=== PATIENT | female | born 2000 | race Caucasian/White ===

== ENCOUNTER 2021-09-24 23:37 | Inpatient (IN) ==
[2021-09-25 00:38] LABS: Urine Appearance Cloudy; Urine Bilirubin Negative (Negative); Urine Blood 2+ (Negative); Urine Color Yellow; Urine Glucose Negative (Negative); Urine Ketones Negative (Negative); Urine Nitrite Negative (Negative); Urine Protein Negative (Negative); Urine Specific Gravity 1.021 (1.002-1.030); Urine Urobilinogen Negative (Negative)
[2021-09-25 00:45] LABS: Urine Bacteria Absent (Absent); Urine Red Blood Cell Trace(0-2/hpf) (Absent); Urine Squamous Epithelial Cell Present (Absent); Urine White Blood Cell Trace(0-5/hpf) (Absent)
[2021-09-25 00:54] LABS: Urine Benzodiazepine Screen None Detected (None Detect); Urine Cannabinoids Screen None Detected (None Detect); Urine Opiates Screen None Detected (None Detect)
[2021-09-25 01:00] LABS: ABS Lymphocytes 1.9 10^3/ul (1.0-4.8); ABS Monocytes 1.1 10^3/ul (0-0.8); ABS Neutrophils 9.4 10^3/ul (1.5-7.7); Eosinophil % 0.3 %; Hematocrit 39 % (35-47); Hemoglobin 13.6 g/dL (12.0-16.0); Lymphocyte % 15.5 %; Mean Corpuscular HGB Conc 34 g/dL (31-36); Mean Corpuscular Hemoglobin 31 pg (27-31); Mean Corpuscular Volume 89 fL (80-97); Mean Platelet Volume 7.4 fL (7.4-10.4); Platelet Count 351 10^3/uL (150-450); Red Cell Distribution Width 13 % (10-15); White Blood Count 12.5 10^3/uL (3.5-10.8)
[2021-09-25 01:16] LABS: ALT 9 U/L (7-52); AST 15 U/L (13-39); Albumin 4.5 g/dL (3.2-5.2); Albumin/Globulin Ratio 1.6 (1-3); Alkaline Phosphatase 54 U/L (35-149); Anion Gap 8 mmol/L (2-11); Blood Urea Nitrogen 13 mg/dL (6-24); CO2 Carbon Dioxide 25 mmol/L (22-32); Calcium 9.5 mg/dL (8.6-10.3); Chloride 105 mmol/L (101-111); Globulin 2.8 g/dL (2-4); Glucose 95 mg/dL (70-100); Potassium 3.5 mmol/L (3.5-5.0); Sodium 138 mmol/L (135-145); Total Protein 7.3 g/dL (6.4-8.9); eGFR CKD-EPI 99.7 (>60)
[2021-09-25 01:22] LABS: HCG Pregnancy < 0.60 mIU/mL
[2021-09-25 01:35] LABS: Acetaminophen < 15 mcg/mL; Alcohol, S < 13 mg/dL (<13); Salicylate < 2.50 mg/dL (<30)
[2021-09-25 02:28] LABS: TSH Ultra Thyroid Stim Horm 1.36 mcIU/mL (0.34-5.60)
[2021-09-25 08:37] LABS: Rapid COVID-19 Molecular Undetected (Undetected)
[2021-09-25] MEDS ORDERED: Al Hydrox/Mg Hydrox/Simet LIQ 30 ML UDC PO PRN (12:31)
[2021-10-01 10:49] VITALS: BP 125/70
== END 2021-10-01 15:00 | disposition home or self-care (01) | DRG 751 ==
LOC: ED 23:37 → BSU 09-25 13:26
PROVIDERS: ADMIT Psychiatry & Neurology Psychiatry; ATTEND Psychiatry & Neurology Psychiatry

== ENCOUNTER 2022-07-14 23:40 | Inpatient (IN) ==
[2022-07-15] MEDS ORDERED: Piperacillin/Tazobac ADVAN 3.375 GM in NS 0.9% 100 ml BAG 100 ML IV ONE (00:46)
[2022-07-15] MEDS ORDERED: Zosyn per Pharmacy NOTE FOLLOW UP SCH (01:00)
[2022-07-15 01:27] LABS: Urine Benzodiazepine Screen None Detected (None Detect); Urine Cannabinoids Screen None Detected (None Detect); Urine Opiates Screen None Detected (None Detect)
[2022-07-15] MEDS ORDERED: Al Hydrox/Mg Hydrox/Simet LIQ 30 ML UDC PO PRN (09:40)
[2022-07-15 09:54] LABS: ABS Eosinophils 0.1 10^3/ul (0-0.6); ABS Lymphocytes 1.7 10^3/ul (1.0-4.8); ABS Monocytes 0.6 10^3/ul (0-0.8); ABS Neutrophils 3.9 10^3/ul (1.5-7.7); Eosinophil % 1.8 %; Hematocrit 41 % (35-47); Hemoglobin 13.5 g/dL (12.0-16.0); Lymphocyte % 26.8 %; Mean Corpuscular HGB Conc 33 g/dL (31-36); Mean Corpuscular Hemoglobin 31 pg (27-31); Mean Corpuscular Volume 93 fL (80-97); Mean Platelet Volume 7.5 fL (7.4-10.4); Platelet Count 275 10^3/uL (150-450); Red Blood Count 4.38 10^6 /uL (3.70-4.87); Red Cell Distribution Width 12 % (10-15); White Blood Count 6.3 10^3/uL (3.5-10.8)
[2022-07-15 10:19] LABS: ALT 11 U/L (7-52); Albumin 4.2 g/dL (3.2-5.2); Alkaline Phosphatase 50 U/L (35-149); Blood Urea Nitrogen 11 mg/dL (6-24); CO2 Carbon Dioxide 25 mmol/L (22-32); Calcium 9.4 mg/dL (8.6-10.3); Chloride 108 mmol/L (101-111); Globulin 2.1 g/dL (2-4); Glucose 76 mg/dL (70-100); HCG Pregnancy < 0.60 mIU/mL; Sodium 141 mmol/L (135-145); Total Protein 6.3 g/dL (6.4-8.9); eGFR CKD-EPI 93.9 (>60)
[2022-07-15 10:28] LABS: TSH Ultra Thyroid Stim Horm 1.06 mcIU/mL (0.34-5.60)
[2022-07-15 10:31] LABS: Anion Gap 8 mmol/L (2-11)
[2022-07-15 11:45] LABS: Potassium Redraw 3.7 mmol/L (3.5-5.0)
[2022-07-16] MEDS: Vitamin THERAPEUTIC TAB PO SCH (07:35)
[2022-07-16] MEDS ORDERED: ASA APAP CAFFEINE ES PO PRN (16:55)
[2022-07-17] MEDS: Vitamin THERAPEUTIC TAB PO SCH (09:00)
[2022-07-18] MEDS: Vitamin THERAPEUTIC TAB PO SCH (09:11)
[2022-07-19] MEDS: Vitamin THERAPEUTIC TAB PO SCH (09:10)
[2022-07-20] MEDS: Vitamin THERAPEUTIC TAB PO SCH (08:14)
[2022-07-21] MEDS: Vitamin THERAPEUTIC TAB PO SCH (08:03)
[2022-07-21 11:00] VITALS: BP 131/73
== END 2022-07-21 11:40 | disposition home or self-care (01) | DRG 751 ==
LOC: ED 23:40 → EDHOLD 07-15 09:40 → BSU 07-15 10:23
PROVIDERS: ADMIT Psychiatry & Neurology Psychiatry; ATTEND Psychiatry & Neurology Psychiatry